=== PATIENT | male | born 1980 | race Caucasian/White ===

== ENCOUNTER 2019-03-02 00:12 | Emergency (ER) | payer BC ==
[~2019-03-02] VITALS: Ht 177.8 cm; Wt 106.5 kg
[2019-03-02 00:16] VITALS: Ht 177.8 cm; Wt 106.5 kg
[2019-03-02] MEDS ORDERED: HYDROCODONE/APAP (5/325) TAB PO ONE (02:00)
[2019-03-02] MEDS ORDERED: HYDR-4011 PO (02:54)
[2019-03-02] MEDS ORDERED: CYCL10TA7 PO (02:54)
--- NOTE | 2019-03-02 02:57 | ERD ---
ER Documentation Chief Complaint Chief Complaint LOWER BACK PAIN, RADIATES LEFT FOOT, 07/10 X THIS AM. HPI 38-year-old male presents with low back pain rating to the left leg. Started this morning. We have started after bending over. Denies any history of trauma or fall. Denies any bowel or bladder incontinence, anesthesia, fevers. ROS All systems reviewed and are negative except as per history of present illness. Medications Home Meds Active Scripts Cyclobenzaprine Hcl* (Cyclobenzaprine Hcl*) 10 Mg Tablet, 10 MG PO TID, #15 TAB Prov:RAYMOND BECKER MD 03/02/19 Hydrocodone/Acetaminophen (Benedict 5-325 Tablet) 1 Each Tablet, 1 TAB PO Q6H PRN for PAIN, #10 TAB Prov:RAYMOND BECKER MD 03/02/19 Allergies Allergies: Coded Allergies: ibuprofen (Verified Allergy, Unknown, 03/02/19) PMhx/Soc Medical and Surgical Hx: pt denies Medical Hx, pt denies Surgical Hx Hx Alcohol Use: No Hx Substance Use: No Hx Tobacco Use: No Smoking Status: Never smoker FmHx Family History: No diabetes, No coronary disease, No other Physical Exam Vitals Vital Signs Date Temp Pulse Resp B/P (MAP) Pulse Ox O2 O2 Flow FiO2 Time Delivery Rate 03/02/19 97.9 76 20 144/84 97 00:16 (104) Physical Exam Const: No acute distress Head: Atraumatic Eyes: Normal Conjunctiva ENT: Normal External Ears, Nose and Mouth. Neck: Full range of motion. No meningismus. Resp: Clear to auscultation bilaterally Cardio: Regular rate and rhythm, no murmurs Abd: Soft, non tender, non distended. Normal bowel sounds Skin: No petechiae or rashes Back: No midline or flank tenderness. Tender left L4-5 paraspinous area. Positive straight leg raise on the left. Ext: No cyanosis, or edema Neur: Awake and alert Psych: Normal Mood and Affect Results 24 hrs Current Medications Medications Dose Sig/Oswaldo Start Time Status Last (Trade) Ordered Route PRN Stop Time Admin Dose Reason Admin 1 tab ONCE ONCE 03/02/19 DC 03/02/19 Acetaminophen PO 02:00 03/02/19 01:52 / 02:01 Hydrocodone Bitart (Benedict (5/325)) Procedures/MDM X-ray LS-Spine 3V Interpreted by me: Bones: No fracture, or lytic lesions Joints: No dislocation Foreign body: None. Impression-normal lumbar spine x-ray Patient is given Benedict 5 mg of mouth for pain. Patient presents with signs and symptoms of acute lumbar strain with sciatica without signs of cauda equina syndrome, epidural abscess, infection, ischemia or deficits. Discharged home with recommendations for exercises, short course of Benedict less than 5-day supply, primary care follow-up and return precautions for fevers, new worsening symptoms. Cures review negative. The patient was stable with no new complaints during the ER course. Clinically, there is no current evidence to suggest me ningitis, sepsis, acute abdomen, pneumonia, stroke, acute coronary syndrome, pulmonary embolism, aortic dissection or any other emergent condition appearing to require further evaluation or hospitalization. Patient counseled regarding my diagnostic impression and care plan. Prior to discharge all questions answered. Pt agrees with treatment plan and understands strict return prec autions. Pt is instructed to follow up with primary care provider within 24-48 hours. Precautionary instructions provided including instructions to return to the ER if not improving or for any worsening or changing symptoms or concerns. Disclaimer: Inadvertent spelling and grammatical errors are likely due to EHR/dictation software use and do not reflect on the overall quality of patient care. Also, please note that the electronic time recorded on this note does not necessarily reflect the actual time of the patient encounter. Departure Diagnosis: Primary Impression: Back pain Back pain location: low back pain Chronicity: acute Back pain laterality: left Sciatica presence: with sciatica Sciatica laterality: sciatica of left side Qualified Codes: M54.42 - Lumbago with sciatica, left side Condition: Stable Patient Instructions: Back Exercises, Lumbar, Back Pain W/ Sciatica Additional Instructions: X-ray appears normal. Recommend stretching and exercises at home. Follow-up with primary doctor. May benefit from physical therapy. Recommend referral to specialist for persistent symptoms despite treatment. Recheck otherwise for fevers, new or worsening symptoms. RAYMOND BECKER MD Mar 02, 2019 02:57
[2019-03-02 03:03] VITALS: BP 123/81; PULSE 73; RESP 14
== END 2019-03-02 03:05 | disposition home or self-care (01) ==
LOC: FTE 00:12
DX: M54.42 Lumbago with sciatica, left side (principal)
CPT/HCPCS: 72100; 99283; Z7610